=== PATIENT | male | born 1945 | race Caucasian/White ===

== ENCOUNTER → 2017-09-21 | Outpatient (REF) | payer MEDICARE ==
[2017-09-21 19:49] LABS: FERRITIN 95 NG/ML (26-388); IRON (FE) 116 UG/DL (65-175); PERCENT SATURATION 41.6 % (19.7-50.0); TOTAL IRON BINDING CAPACITY 279 UG/DL (250-450)
== END ==
LOC: M LAB REF 17:10
DX: N18.9 Chronic kidney disease, unspecified (principal); D63.1 Anemia in chronic kidney disease
CPT/HCPCS: 83550

== ENCOUNTER → 2020-09-07 | Outpatient (REF) | payer MEDICARE ==
[~2020-09-07] MED LIST: ADV500INH INH; ALBU17IN2 INH; CIPR-249 PO; DOCU10CA PO; FLAG500T PO; NEUR600T PO; PERC5TAB12 PO; SPIR1CAP IN; SYNT75TA PO
== END ==
LOC: M LAB REF 17:48
PROVIDERS: ATTEND Nurse Practitioner Family
DX: E83.42 Hypomagnesemia (principal)

== ENCOUNTER → 2021-05-07 | Outpatient (REF) | payer MEDICARE | LOC: M SMT 16:32 | PROVIDERS: ATTEND Physician Assistant | DX: N48.0 Leukoplakia of penis (principal) ==

== ENCOUNTER → 2023-08-06 | Outpatient (REF) | payer MEDICARE ==
[2023-08-06 19:07] LABS: FERRITIN 10.3 NG/ML (10.5-307.3)
== END ==
LOC: M LAB REF 17:00
PROVIDERS: ATTEND Nurse Practitioner Family
DX: D50.9 Iron deficiency anemia, unspecified (principal)

== ENCOUNTER → 2023-12-04 | Outpatient (REF) | payer MEDICARE ==
[2023-12-04 19:18] LABS: FERRITIN 10.8 NG/ML (10.5-307.3)
[2023-12-04 19:22] LABS: PERCENT SATURATION 8.1 % (19.7-50.0)
== END ==
LOC: M LAB REF 16:52
PROVIDERS: ATTEND Nurse Practitioner Family
DX: D50.9 Iron deficiency anemia, unspecified (principal)